=== PATIENT | female | born 1995 | race Caucasian/White ===

== ENCOUNTER 2020-11-05 13:20 | Emergency (ER) | payer OTHER, MEDICAID, SELFPAY ==
[2020-11-05 13:25] VITALS: BP 99/50; PULSE 97; RESP 18; TEMP 37.1; O2SAT 100; BMI 15.2
--- NOTE | 2020-11-05 13:39 | DI.CT.S_ITS ---
PROCEDURE: CT ABDOMEN PELVIS W CON INDICATIONS: Generalized abdominal pain, constipation, hypoactive bowel s TECHNIQUE: After the administration of intravenous contrast, 5 mm thick sections acquired from the diaphragm to the symphysis. 5 mm coronal and sagittal reformats were acquired. For radiation dose reduction, the following was used: automated exposure control, adjustment of mA and/or kV according to patient size. COMPARISON: [facility], CT, CT ABDOMEN PELVIS WITH CONTRAST, 07/17/2020, 21:35. FINDINGS: Image quality: Excellent. ABDOMEN: Lung bases: Lung bases are clear. Heart size is normal. Solid organs: Liver is normal in size and enhancement. Gallbladder is within normal limits. Biliary system is non dilated. Pancreas enhances normally. Spleen is normal in size and enhancement. No adrenal nodules. Kidneys demonstrate normal size and enhancement, without hydronephrosis. Peritoneum and bowel: Large amount of stool noted in the sigmoid colon in the rectum compatible with obstipation. There is moderate scattered stool throughout the colon. Mild distention of multiple loops of small bowel without small bowel dilatation. No free air. Nodes and vessels: No retroperitoneal or mesenteric adenopathy by size criteria. Aorta and inferior vena cava are normal in size. Miscellaneous: No ventral hernias. PELVIS: Genitourinary: Urinary bladder is markedly distended. There is mass effect on the urinary bladder related to large amount of stool in the rectum which causes anterior and rightward displacement of the urinary bladder. Intrauterine device is centrally positioned within the uterus. There is a 3.5 x 3.8 x 5.4 centimeter left adnexal region cyst. Miscellaneous: No inguinal hernias or adenopathy. Bones: No suspicious bony lesions. No vertebral body compression fractures. IMPRESSION: 1. Severe rectal and sigmoid colon not obstipation. 2. 3.5 x 3.8 x 5.4 centimeter left adnexal region cyst. Recommend pelvic ultrasound for definitive characterization. 3. No definite free intraperitoneal fluid or abscess, however without the benefit of oral contrast free fluid and abscess cannot be completely excluded. 4. No free intraperitoneal air. 5. Marked distention of the urinary bladder. There is marked mass effect on the urinary bladder caused by large amount of stool associated with rectal obstipation. Bladder outlet obstruction is not excluded. Dictated by: Eli Manuel MD, PhD on 11/05/2020 at 14:56 Approved by: Eli Manuel MD, PhD on 11/05/2020 at 15:04
[2020-11-05 13:45] LABS: Add Manual Diff / Slide Review NO; Basophils Absolute Auto 100 /uL (0-100); Basophils Percent Auto 0.5 % (0-2); Eosinophils Absolute Auto 0 /uL (0-450); Eosinophils Percent Auto 0.3 % (2-4); Hemoglobin 14.6 g/dL (12.0-16.0); Lymphocytes Absolute Auto 1900 /uL (1100-4500); Mean Corpuscular HGB Conc 33.9 % (30-36); Mean Corpuscular Hemoglobin 32.9 PG (26-34); Mean Corpuscular Volume 97.1 fL (80-100); Monocytes Absolute Auto 700 /uL (0-900); Monocytes Percent Auto 6.4 % (3-14); Neutrophils Absolute Auto 7700 /uL (1500-7000); Neutrophils Percent Auto 74.8 % (50-75); Platelet Count 164 X10^3/uL (150-400); Red Blood Cell Count 4.43 X10^6/uL (4.0-5.2); Red Cell Distribution Width 12.7 % (11.6-14.8); White Blood Cell Count 10.3 X10^3/uL (4.5-11.0)
[2020-11-05] MEDS: SODIUM CHLORIDE 0.9% 1,000 ML 1000 ML IV (13:48)
[2020-11-05 13:57] LABS: Pregnancy Test Serum,Qual Negative (Negative)
[2020-11-05 14:05] LABS: Alanine Aminotransferase 15 IU/L (<35); Albumin 4.5 g/dL (3.5-5.0); Albumin Globulin Ratio 1.3 (1.0-2.8); Alkaline Phosphatase 53 U/L (38-126); Aspartate Aminotransferase 26 IU/L (14-36); BUN Creatinine Ratio 20.2 (6-22); Blood Urea Nitrogen 17 mg/dL (7-17); Calcium 9.1 mg/dL (8.4-10.2); Carbon Dioxide 27 mmol/L (22-32); Chloride 105 mmol/L (98-107); Estimated Glomerular Filt Rate > 60.0 mL/min (>60); Globulin 3.6 g/dL (1.7-4.1); Glucose 112 mg/dL (70-100); HEMOLYSIS < 15 (0-50); Lipase 57 U/L (23-300); Sodium 138 mmol/L (137-145); Total Protein 8.1 g/dL (6.3-8.2)
--- NOTE | 2020-11-05 14:35 | ED.GENADULT ---
HPI - General Adult General Chief complaint: Abdominal Pain Stated complaint: extremely constipated 4 days Time Seen by Provider: 11/05/20 13:29 Source: patient Mode of arrival: Ambulatory Limitations: no limitations History of Present Illness HPI narrative: Patient is a 25-year-old female. History of drug abuse. Also has had a history of constipation and urinary retention. Last episode urinary retention was earlier this year. She states she has not had a bowel movement in at least the past 4 days if not longer than that. States she has tried [id number] laxatives and also enemas. She does feel like there is stool in the rectum that just will not come out. She is not having any urinary symptoms. No fevers. Seven nausea. No vomiting. She states she still is using drugs. She also states that at baseline she has to give herself enemas in take laxatives on a regular basis in order for her to have any bowel movements. Related Data Allergies Allergy/AdvReac Type Severity Reaction Status Date / Time codeine Allergy Verified 11/05/20 13:29 Review of Systems Constitutional Constitutional: Denies fever(s) Cardiovascular Cardiovascular: Denies chest pain and Denies dyspnea Respiratory Respiratory: Denies dyspnea Gastrointestinal Gastrointestinal: Reports abdominal pain, Reports bloating, Reports constipation, Reports nausea and Denies vomiting Genitourinary Genitourinary: Denies dysuria Genitourinary: Denies dysuria Musculoskeletal Musculoskeletal: Denies arthralgias and Denies myalgias Integumentary/Breasts Skin/Breast: Denies lesions and Denies rash Neurologic Neurologic: Denies behavioral changes Psychiatric Psychiatric: Denies behavioral changes Hematologic/Lymphatic Hematologic/Lymphatic: Denies easy bleeding and Denies easy bruising Allergic/Immunologic Allergic/Immunologic: Denies urticaria Patient History Medical History Constipation Drug use Urinary retention Social History Smoking Status: Current every day smoker Smoking Status: Current every day smoker alcohol intake frequency: holidays/special occasions only Substance Use Type: heroin Exam Initial Vital Signs Initial Vital Signs: Vital Signs Temperature 98.8 F 11/05/20 13:25 Pulse Rate 97 H 11/05/20 13:25 Respiratory Rate 18 11/05/20 13:25 Blood Pressure 99/50 L 11/05/20 13:25 Pulse Oximetry 100 11/05/20 13:25 Const General: cooperative and well developed Nutritional Appearance: well nourished [facility] Head: normal to inspection and normocephalic Resp Effort & Inspection: normal respiratory effort Auscultation: clear to auscultation bilaterally Cardio Rate: regular rate GI Inspection: distended Palpation: No firm and tender Rectal Exam: visual inspection normal, fecal impaction and No hemorrhoids Skin Lesions: no lesions Rashes: no rashes Neuro General: patient alert and patient awake Cognition: normal cognition Speech: speech normal Extrem General: capillary refill normal Psych Appearance: grossly normal and well kempt Procedures Rectal Disimpaction Time out performed rectal disimpaction: No Indication: fecal impaction Procedural Sedation: No Technique: manual disimpaction with gloved finger Result: unable to disimpact Complications: pain Course Orders Ordered: ED Orders 11/05/20 13:36 Complete Blood Count AUTO DIFF Stat Comprehensive Metabolic Panel Stat Lipase Stat Test Serum,Qual Stat 11/05/20 13:39 CT abdomen pelvis w con Stat 11/05/20 14:18 EKG-12 Lead Stat 11/05/20 15:39 Consult to [facility] [place] - Yarn Cleaner Stat Discontinued Medications Sodium Chloride (Normal Saline 0.9%) 1,000 mls @ 1,000 mls/hr IV BOLUS ONE Stop: 11/05/20 14:38 Last Infusion: 11/05/20 14:58 Dose: 0 mls/hr Documented by: Admin: 11/05/20 13:48 Dose: 1,000 mls/hr Documented by: MIKA Lorazepam (Lorazepam 2 Mg/Ml Inj) 1 mg IV NOW ONE Stop: 11/05/20 17:26 Last Admin: 11/05/20 17:30 Dose: 1 mg Documented by: MIKA Magnesium Citrate (Magnesium Citrate 300 Ml Solution) 300 ml PO NOW ONE Stop: 11/05/20 16:36 Last Admin: 11/05/20 16:42 Dose: 300 ml Documented by: MIKA Vital Signs Vital signs: Vital Signs - 8 hr 11/05/20 13:25 Temperature 98.8 F Pulse Rate 97 H Respiratory Rate 18 Blood Pressure 99/50 L Pulse Oximetry 100 Medical Decision Making Medical Records Medical records reviewed: Yes I reviewed the patient's medical records. Lab Data Lab results reviewed: Yes I reviewed the patient's lab results. Result diagrams: 11/05/20 13:36 11/05/20 13:36 Labs: Lab Results 11/05/20 11/05/20 11/05/20 Range/Units 13:36 13:36 13:36 WBC 10.3 (4.5-11.0) X10^3/uL RBC 4.43 (4.0-5.2) X10^6/uL Hgb 14.6 (12.0-16.0) g/dL Hct 43.0 (36-46) % MCV 97.1 (80-100) fL MCH 32.9 (26-34) PG MCHC 33.9 (30-36) % RDW 12.7 (11.6-14.8) % Plt Count 164 (150-400) X10^3/uL Neut % (Auto) 74.8 (50-75) % Lymph % (Auto) 18.0 L (25-40) % Sharkey % (Auto) 6.4 (3-14) % Eos % (Auto) 0.3 L (2-4) % Baso % (Auto) 0.5 (0-2) % Neut # (Auto) 7700 H (4918-0165) /uL Lymph # (Auto) 1900 (9916-0888) /uL Sharkey # (Auto) 700 (0-900) /uL Eos # (Auto) 0 (0-450) /uL Baso # (Auto) 100 (0-100) /uL Sodium 138 (137-145) mmol/L Potassium 4.0 (3.4-5.1) mmol/L Chloride 105 (98-107) mmol/L Carbon Dioxide 27 (22-32) mmol/L BUN 17 (7-17) mg/dL Creatinine 0.84 (0.52-1.04) mg/dL Estimated GFR > 60.0 (>60) mL/min BUN/Creatinine Ratio 20.2 (6-22) Glucose 112 H (70-100) mg/dL Calcium 9.1 (8.4-10.2) mg/dL Total Bilirubin 1.0 (0.2-1.3) mg/dL AST 26 (14-36) IU/L ALT 15 (<35) IU/L Alkaline Phosphatase 53 (38-126) U/L Total Protein 8.1 (6.3-8.2) g/dL Albumin 4.5 (3.5-5.0) g/dL Globulin 3.6 (1.7-4.1) g/dL Albumin/Globulin Ratio 1.3 (1.0-2.8) Lipase 57 (23-300) U/L Serum , Qual Negative (Negative) Urine Dip Bedside Urine Glucose Negative Bedside Urine Bilirubin - Negative Bedside Urine Ketone - Negative Urine Specific Easton 1.020 Bedside Urine Occult Blood - Negative Bedside Urine pH 7 Bedside Urine Protein - Negative Bedside Urine Urobilinogen - Negative Bedside Urine Nitrite - Negative Bedside Urine Leukocytes - Negative Esterase Point of care testing: Urine Dip Bedside Urine Glucose Negative Bedside Urine Bilirubin - Negative Bedside Urine Ketone - Negative Urine Specific [place]on 1.020 Bedside Urine Occult Blood - Negative Bedside Urine pH 7 Bedside Urine Protein - Negative Bedside Urine Urobilinogen - Negative Bedside Urine Nitrite - Negative Bedside Urine Leukocytes - Negative Esterase Imaging Data CT scan - abdomen/pelvis: Radiologist's Impression: [address] [id number] Scan ReportSigned Patient: Dorene Otero LMR#: [id number]: 1995Acct:[id number]/Sex: 25 / FDate of Service: 11/05/20Loc: EDAccession Number: [id number] Procedure: CT abdomen pelvis w con Ordering Provider: French Cesar D.O. PROCEDURE: CT ABDOMEN PELVIS W CON INDICATIONS: Generalized abdominal pain, constipation, hypoactive bowel s TECHNIQUE: After the administration of intravenous contrast, 5 mm thick sections acquired from the diaphragm to the symphysis. 5 mm coronal and sagittal reformats were acquired. For radiation dose reduction, the following was used: automated exposure control, adjustment of mA and/or kV according to patient size. COMPARISON: [facility], CT, CT ABDOMEN PELVIS WITH CONTRAST, 07/17/2020, 21:35. FINDINGS: Image quality: Excellent. ABDOMEN: Lung bases: Lung bases are clear. Heart size is normal. Solid organs: Liver is normal in size and enhancement. Gallbladder is within normal limits. Biliary system is non dilated. Pancreas enhances normally. Spleen is normal in size and enhancement. No adrenal nodules. Kidneys demonstrate normal size and enhancement, without hydronephrosis. Peritoneum and bowel: Large amount of stool noted in the sigmoid colon in the rectum compatible with obstipation. There is moderate scattered stool throughout the colon. Mild distention of multiple loops of small bowel without small bowel dilatation. No free air. Nodes and vessels: No retroperitoneal or mesenteric adenopathy by size criteria. Aorta and inferior vena cava are normal in size. Miscellaneous: No ventral hernias. PELVIS: Genitourinary: Urinary bladder is markedly distended. There is mass effect on the urinary bladder related to large amount of stool in the rectum which causes anterior and rightward displacement of the urinary bladder. Intrauterine device is centrally positioned within the uterus. There is a 3.5 x 3.8 x 5.4 centimeter left adnexal region cyst. Miscellaneous: No inguinal hernias or adenopathy. Bones: No suspicious bony lesions. No vertebral body compression fractures. IMPRESSION: 1. Severe rectal and sigmoid colon not obstipation. 2. 3.5 x 3.8 x 5.4 centimeter left adnexal region cyst. Recommend pelvic ultrasound for definitive characterization. 3. No definite free intraperitoneal fluid or abscess, however without the benefit of oral contrast free fluid and abscess cannot be completely excluded. 4. No free intraperitoneal air. 5. Marked distention of the urinary bladder. There is marked mass effect on the urinary bladder caused by large amount of stool associated with rectal obstipation. Bladder outlet obstruction is not excluded. Dictated by: Eli Manuel MD, PhD on 11/05/2020 at 14:56 Approved by: Eli Manuel MD, PhD on 11/05/2020 at 15:04 ECG Data Attestation: I personally reviewed and interpreted this ECG as follows: Prior ECG tracings: not available for review Interpretation: Sinus rhythm Ventricular rate is 78 Normal axis Normal QRS Normal QTC No ST T wave changes MDM Narrative Medical decision making narrative: Patient's CT scan does not show any signs of obstruction however she does have quite a bit of stool in the rectum and also urinary retention. Patient has had urinary retention in the past and has required a full in the past. Jane was placed with return approximately 300 cc of urine. There is no signs of infection. Initial attempt at manual disimpaction unsuccessful. A Fleet's enema was then placed and the patient was able to eliminate a very large amount of soft stool. Afterwards she stated that she felt much better. We did discuss her urinary retention. We did discuss leaving the Jane catheter in until she follows up with her primary versus removing the catheter and the patient states she would like to have the catheter removed. Did discuss the risks of this to include return of the urinary retention she expressed understanding this and still would like to have removed. She was seen by social work. I did inform the patient that she needs to make contact with the primary doctor and also get in to see a urologist and a GI doctor given her symptoms. She states that she needs to take laxatives on a regular basis in order to have a normal bowel movement. Patient declined the offer to help with rehab given her heroin use. She was given strict return precautions. She expressed understanding agreement. Discharge Plan Departure Patient Disposition: Home Clinical Impression: Constipation, Urinary retention Instructions: Constipation Activity Restrictions/Additional Instructions: I recommend that you contact the health human resources hr generalist [phone]. This individual can help you establish a primary doctor. I do think that is important that you follow-up with a belt brander and also a urologist given your symptoms. I highly recommend that you abstain from taking heroin as this just complicates all of your other issues. Return to the emergency department for any new or worsening symptoms. Referrals: Nelson Lazcano MD [Primary Care Provider] -
--- NOTE | 2020-11-05 16:05 | CM.SWNOTE ---
Addendum entered by Rios Tai 11/05/20 17:52: 1752: Dr. Cesar informs SLURRY CONTROL OPERATOR HELPER that patient is in less pain and ready for d/c, but agreeable to brief meeting with SLURRY CONTROL OPERATOR HELPER. SLURRY CONTROL OPERATOR HELPER enters room and patient informs SLURRY CONTROL OPERATOR HELPER that she is working with [facility] and understands the process to access inpatient treatment. Patient denies other needs from SLURRY CONTROL OPERATOR HELPER at this time and states I just want to go outside and smoke a cigarette. VIPIN Dunlap Original Note: SLURRY CONTROL OPERATOR HELPER note SLURRY CONTROL OPERATOR HELPER consult requested for patient. Patient is a 25 y/o female who presents to the ED today with on-going constipation. Per verbal report from Dr. Cesar, patient has hx of herioin use, and received MALKA report for patient. SLURRY CONTROL OPERATOR HELPER enters room and explains role. Patient is A+O, and appears to be in significant pain. Patient reports that I need to go to treatment, but other than that I'm good. SLURRY CONTROL OPERATOR HELPER and patient begin to discuss this, and patient verbalizes her experience of pain. SLURRY CONTROL OPERATOR HELPER offers to meet with patient later in day and patient accepts. SLURRY CONTROL OPERATOR HELPER exits room and updates Dr. Cesar, SLURRY CONTROL OPERATOR HELPER will attempt to meet with patient later in day. VIPIN Dunlap
[2020-11-05] MEDS: MAGNESIUM CITRATE 300 ML SOLUTION PO (16:42)
[2020-11-05] MEDS: LORazepam 2 MG/ML INJ 1 MG IV (17:30)
[2020-11-05 18:33] VITALS: BP 108/61; PULSE 93; RESP 18; O2SAT 93
--- NOTE | 2020-11-05 18:33 | PC.NURSE ---
cathetor was pulled from the patient prior to her leaving the ED.
== END 2020-11-05 18:35 | disposition home or self-care (01) ==
PROVIDERS: Emergency Provider Emergency Medicine; PCP Family Medicine Sports Medicine
DX: K59.00 Constipation, unspecified (principal); R33.8 Other retention of urine; R10.9 Unspecified abdominal pain; R11.0 Nausea
CPT/HCPCS: 36415; 51798; 74177; 80053; 81003; 83690; 84703; 85025; 93005; 93010; 96361; 96374; 99282; 99284; J2060; Q9967

== ENCOUNTER 2021-05-29 12:18 | Emergency (ER) | payer OTHER, MEDICAID, SELFPAY ==
[2021-05-29 12:57] VITALS: BP 101/69; PULSE 88; RESP 16; TEMP 36.9; O2SAT 98; BMI 18.2
--- NOTE | 2021-05-29 13:16 | DI.RAD.S_ITS ---
PROCEDURE: XR ACUTE ABDOMEN SERIES INDICATIONS: wc or ambulatory, c/o abd pain/constipation TECHNIQUE: One view chest and two views of the abdomen were acquired. COMPARISON: [facility], CT, CT ABDOMEN PELVIS WITH CONTRAST, 03/22/2021, 20:41. [facility], CR, XR CHEST 1 VIEW, 03/23/2021, 12:39. FINDINGS: Surgical changes and devices: An IUD is seen at its expected location. Chest: Lungs are clear. Heart size is normal. No pleural effusions. No pneumoperitoneum. Abdomen: There is a prominent amount of stool seen within the colon. Bowel gas pattern is normal. No suspicious calcifications. Visualized solid organ contours appear normal. Bones: No suspicious bony lesions. Mild levoconvex scoliotic curvature is noted. IMPRESSION: There is a prominent amount of stool seen within the colon, which is consistent with the given history of constipation. Dictated by: French Alcantara M.D. on 05/29/2021 at 12:36 Approved by: French Alcantara M.D. on 05/29/2021 at 12:37
--- NOTE | 2021-05-29 15:24 | ED.ABDPAIN ---
HPI - Abdominal Pain General Chief Complaint: Abdominal Pain Stated Complaint: Severe Constipation Time Seen by Provider: 05/29/21 14:33 Source: patient Mode of arrival: Ambulatory Limitations: no limitations History of Present Illness HPI narrative: Patient is a 18-year-old female who has a history of heroin abuse and constipation presenting with constipation. She says she has not really had a bowel movement in 2 weeks. She actually was at [facility] at the end of February she said that she had to go the operating room for fecal disimpaction. She said she was unable to tolerate the emergency department fecal disimpaction. She also says that she was recently diagnosed with a connective tissue disorder as well. She does not use IV heroin but smokes heroin instead. She takes multiple [id number] medications to help with her constipation but does not seem to be working. She is having increasing pain and has pressure in her rectum. X-ray confirms constipation. She feels nauseous at times as well. No nausea or vomiting. Related Data Allergies Allergy/AdvReac Type Severity Reaction Status Date / Time codeine Allergy Verified 11/05/20 13:29 Review of Systems Review of Systems Narrative: GENERAL: Denies chills, fatigue, malaise, fever, sweats, travel HEENT: Denies sinus pain, ear pain, sore throat, difficulty swallowing, neck pain RESPIRATORY: Denies dyspnea, cough, wheezing, hemoptysis, sputum. CARDIOVASCULAR: Denies chest pain, palpitations, orthopnea, edema GASTROINTESTINAL: See HPI : Denies dysuria, frequency, incontinence, hematuria, urinary retention, flank pain. MUSCULOSKELETAL: Denies weakness, joint pain, or bony pain SKIN: No rash, no erythema, no pruritus NEUROLOGIC: Denies weakness, dizziness, headache, numbness, change in speech, confusion PSYCHIATRIC: No concerning psychosocial issues. 12 point review of systems is negative except for those stated above and HPI Patient History Medical History Constipation Drug use Urinary retention Social History Smoking Status: Current every day smoker Smoking Status: Current every day smoker alcohol intake frequency: holidays/special occasions only Substance Use Type: heroin Exam Initial Vital Signs Initial Vital Signs: Vital Signs Temperature 98.4 F 05/29/21 12:57 Pulse Rate 88 05/29/21 12:57 Respiratory Rate 16 05/29/21 12:57 Blood Pressure 101/69 05/29/21 12:57 Pulse Oximetry 98 05/29/21 12:57 GENERAL: Thin alert 26-year-old female and in no acute distress. HEENT: Head atraumatic,EOMI, pupils reactive, face symmetric, moist mucous membranes CARDIOVASCULAR: Regular rate and rhythm without murmurs, rubs or gallops. RESPIRATORY: Breath sounds equal bilaterally, no wheezes rales or rhonchi. ABDOMEN: Soft, mild distention lower abdominal tenderness no guarding or rebound RECTAL: Stool in rectal vault is exam was tender but she tolerated it no gross blood. No stool was removed at that time EXTREMITIES: Normal range of motion, no clubbing or edema. Neurovascularly intact NEUROLOGICAL: Alert and oriented x4.Normal gait and speech. SKIN: Warm, dry, no laceration, no petechiae, no rashes or lesions. Course Orders Ordered: ED Orders 05/29/21 13:16 XR acute abdomen series Stat 05/29/21 15:00 Urine Drug Screen, Rapid Stat 05/29/21 15:50 Urine Culture Stat Urine Microscopic Stat Discontinued Medications Lactulose (Lactulose 20 Gm/30 Ml Solution) 20 gm PO NOW ONE Stop: 05/29/21 15:36 Last Admin: 05/29/21 15:54 Dose: 20 gm Documented by: [facility] Methylnaltrexone [place] (Methylnaltrexone 12 Mg/0.6 Ml Vial) 12 mg SUBCUT NOW ONE Stop: 05/29/21 17:01 Last Admin: 05/29/21 17:09 Dose: 12 mg Documented by: [facility] Mineral Oil (Mineral Oil 1 Each Enema) 1 each [place] NOW ONE Stop: 05/29/21 15:36 Last Admin: 05/29/21 15:54 Dose: 1 each Documented by: [facility] Vital Signs Vital signs: Vital Signs - 8 hr 05/29/21 12:57 05/29/21 18:32 Temperature 98.4 F 99.0 F Pulse Rate 88 78 Respiratory Rate 16 18 Blood Pressure 101/69 103/64 Pulse Oximetry 98 97 MDM - Abdominal Pain Lab Data Labs: Lab Results 05/29/21 05/29/21 Range/Units 15:00 15:50 Urine RBC 0-1/hpf (0-5/HPF) Urine WBC 10-30/hpf H (0-5/HPF) Ur Squamous Epith Cells 1-5 /hpf (0-5/HPF) Calcium Oxalate Crystal Few H Uric Acid Crystals Occasional (None) Amorphous Sediment 1+ Urine Bacteria Many (>30) H (None) Urine Mucus 1+ H (Negative) Ur Culture Indicated? Specimen cultured U Opiates 300ng/mL cut Positive H (Negative) Ur Oxycodone Screen Negative (Negative) Urine Methadone Screen Negative (Negative) Ur Barbiturates Screen Negative (Negative) U Tricyclic Antidepress Negative (Negative) Ur Phencyclidine Scrn Negative (Negative) Ur Amphetamines Screen Positive H (Negative) U Methamphetamines Scrn Positive H (Negative) Ur MDMA Scrn (Ecstasy) Negative (Negative) U Benzodiazepines Scrn Negative (Negative) Urine Cocaine Screen Negative (Negative) U Marijuana (THC) Screen Negative (Negative) Point of care testing: Point of Care Testing Test Results Negative Urine Dip Bedside Urine Glucose Negative Bedside Urine Bilirubin - Negative Bedside Urine Ketone - Negative Urine Specific [place] 1.020 Bedside Urine Occult Blood +/- Bedside Urine pH 6.0 Bedside Urine Protein + 30 Bedside Urine Urobilinogen - Negative Bedside Urine Nitrite + Positive Bedside Urine Leukocytes ++ 125 Esterase Imaging Data Abdominal x-ray: Radiologist's Impression: PROCEDURE: XR ACUTE ABDOMEN SERIES INDICATIONS: wc or ambulatory, c/o abd pain/constipation TECHNIQUE: One view chest and two views of the abdomen were acquired. COMPARISON: [facility], CT, CT ABDOMEN PELVIS WITH CONTRAST, 03/22/2021, 20:41. [facility], CR, XR CHEST 1 VIEW, 03/23/2021, 12:39. FINDINGS: Surgical changes and devices: An IUD is seen at its expected location. Chest: Lungs are clear. Heart size is normal. No pleural effusions. No pneumoperitoneum. Abdomen: There is a prominent amount of stool seen within the colon. Bowel gas pattern is normal. No suspicious calcifications. Visualized solid organ contours appear normal. Bones: No suspicious bony lesions. Mild levoconvex scoliotic curvature is noted. IMPRESSION: There is a prominent amount of stool seen within the colon, which is consistent with the given history of constipation. Dictated by: French Alcantara M.D. on 05/29/2021 at 12:36 MDM Narrative Medical decision making narrative: Patient was given mineral enema lactulose and medication for opiate induced constipation. Nothing worked. She did not want have disimpaction is of her bowel in the emergency department. She did not complain of signs or symptoms of UTI however urine has leukocyte and nitrates and. She left prior to her discharge instructions and did not receive an antibiotic. She would rather go to [facility] were she will be surgically disimpact. Discharge Plan Departure Patient Disposition: Home Clinical Impression: Constipation Instructions: DI for Constipation Activity Restrictions/Additional Instructions: *You have been diagnosed with constipation *What to do: This time constipation is likely multifactorial. Heroin use is certainly not helping. I support her decision to go to rehab. Increase water intake, increase activity *Continue to take medications as directed Lactulose 20 g once a day for constipation *Follow up with your primary care provider in 2-3 days *Return to ER if you should have to increasing abdominal pain nausea or vomiting or any new, worsening or concerning symptoms Referrals: Karyn Sands PA-C [Primary Care Provider] -
[2021-05-29] MEDS: LACTULOSE 20 GM/30 ML SOLUTION PO (15:54)
[2021-05-29] MEDS: MINERAL OIL 1 EACH ENEMA PR (15:54)
[2021-05-29 16:19] LABS: Ur Creatinine Normal (Normal); Ur Specific Gravity Normal (Normal); Urine pH Normal (Normal)
[2021-05-29 16:20] LABS: UR Morphine/Opiate cutoff 300 Positive (Negative); Urine Amphetamines Positive (Negative); Urine Barbiturates Negative (Negative); Urine Benzodiazepines Negative (Negative); Urine Cocaine Negative (Negative); Urine MDMA Negative (Negative); Urine Methadone Negative (Negative); Urine Methamphetamines Positive (Negative); Urine Oxycodone Negative (Negative); Urine Phencyclidine Negative (Negative); Urine Tetrahydrocannabinol Negative (Negative); Urine Tricyclic Antidepressant Negative (Negative)
[2021-05-29] MEDS: METHYLNALTREXONE 12 MG/0.6 ML VIAL SUBCUT (17:09)
[2021-05-29 18:32] VITALS: BP 103/64; PULSE 78; RESP 18; TEMP 37.2; O2SAT 97
[2021-05-29 19:28] LABS: RBC Urine 0-1/HPF (0-5/HPF); Squamous Epithelial Cell Urine 1-5 /HPF (0-5/HPF); WBC Urine 10-30/HPF (0-5/HPF)
[2021-05-29 19:29] LABS: Amorphous Sediment Urine 1+; Bacteria Urine Many (>30); Calcium Oxalate Crystals Urine Few; Culture Indicated Urine Specimen Cultured; Mucus Urine 1+ (Negative); Uric Acid Crystals Urine Occasional
== END 2021-05-29 18:41 | disposition home or self-care (01) ==
PROVIDERS: Emergency Provider Emergency Medicine; PCP Physician Assistant
DX: K59.00 Constipation, unspecified (principal)
CPT/HCPCS: 74022; 80305; 81003; 81015; 81025; 87077; 87086; 96372; 99283